=== PATIENT | female | born 1990 | race Caucasian/White ===

== ENCOUNTER 2021-12-05 12:35 | Emergency (ER) | payer MEDICAID ==
[~2021-12-05] VITALS: Ht 170.2 cm; Wt 72.0 kg
[~2021-12-05 12:35] MED LIST: CLIN-26 PO
[2021-12-05 12:50] VITALS: BP 135/88
== END 2021-12-05 15:25 | disposition home or self-care (01) ==
LOC: ER 12:35
DX: M54.50 Low back pain, unspecified (principal); F15.20 Other stimulant dependence, uncomplicated
CPT/HCPCS: 99281

== ENCOUNTER 2022-07-24 11:59 | Emergency (ER) | payer MEDICAID ==
[~2022-07-24] VITALS: Ht 170.2 cm; Wt 72.7 kg
[~2022-07-24 11:59] MED LIST changes: +IBUP-1986 PO
[2022-07-24 12:05] VITALS: BP 118/70
--- NOTE | 2022-07-24 12:16 | NUR ---
PT TAKEN TO THE BATHROOM FOR A URINE SAMPLE FOR TEST. PT WAS UNABLE TO PROVIDE A URINE SAMPLE. PROVIDER NOTIFIED
== END 2022-07-24 12:29 ==
LOC: ER 11:59
DX: F11.20 Opioid dependence, uncomplicated (principal); F41.9 Anxiety disorder, unspecified; F12.10 Cannabis abuse, uncomplicated; Z86.14 Personal history of Methicillin resistant Staphylococcus aureus infection; Z79.899 Other long term (current) drug therapy; Z88.8 Allergy status to other drugs, medicaments and biological substances
CPT/HCPCS: 99283